=== PATIENT | female | born 1995 | race Two or more races ===

== ENCOUNTER 2021-04-19 13:26 | Emergency (ER) | payer OTHER ==
[~2021-04-19] VITALS: Ht 154.9 cm; Wt 67.6 kg
[2021-04-19 13:36] VITALS: BP 122/79
[2021-04-19 15:16] LABS: Hepatitis B Surface Antibody Negative (Negative)
== END 2021-04-19 15:21 | disposition home or self-care (01) ==
LOC: EEVIPCON 13:26 → ER 13:26
DX: S61.230A Puncture wound without foreign body of right index finger without damage to nail, initial encounter (principal); O26.891 Other specified pregnancy related conditions, first trimester; Z3A.12 12 weeks gestation of pregnancy; W46.1XXA Contact with contaminated hypodermic needle, initial encounter; Y93.89 Activity, other specified; Y92.89 Other specified places as the place of occurrence of the external cause; Y99.8 Other external cause status
CPT/HCPCS: 36415; 86703; 86706; 86803; 87340

== ENCOUNTER 2021-07-30 20:00 | Observation (INO) | payer MEDICAID ==
[~2021-07-30] VITALS: Ht 154.9 cm; Wt 70.8 kg
[2021-07-31] MEDS ORDERED: ONDA-144 PO (00:38)
[2021-07-31] MEDS ORDERED: NITR-87 PO (00:38)
== END 2021-07-30 21:21 | disposition home or self-care (01) ==
LOC: LDRP 20:00
PROVIDERS: ADMIT Obstetrics & Gynecology; ATTEND Obstetrics & Gynecology
DX: O26.892 Other specified pregnancy related conditions, second trimester (principal); R10.9 Unspecified abdominal pain; O21.2 Late vomiting of pregnancy; Z3A.27 27 weeks gestation of pregnancy
CPT/HCPCS: 59025; 81002; G0378

== ENCOUNTER 2021-07-30 22:04 | Emergency (ER) | payer MEDICAID ==
[~2021-07-30] VITALS: Ht 154.9 cm; Wt 70.8 kg
[2021-07-30] MEDS ORDERED: SODIUM CHLORIDE 0.9% 1,000 ML IV ONE (22:45)
[2021-07-30 23:25] LABS: Basophils # (auto) 0 10 ^3/uL (0-0.2); Basophils % (auto) 0.1 % (0.0-2.0); Eosinophils # (auto) 0.1 10 ^3/uL (0-0.8); Eosinophils % (auto) 0.3 % (0.0-7.0); Hematocrit 36.8 % (36.0-46.0); Hemoglobin 12.6 g/dL (12.2-16.2); Mean Corpuscular Hemoglobin 31.6 pg (28.0-32.0); Mean Corpuscular Hgb Conc. 34.2 g/dL (32.0-36.0); Mean Corpuscular Volume 92.4 fL (80.0-100.0); Monocytes # (auto) 0.9 10 ^3/uL (0-1.3); Monocytes % (auto) 5.6 % (0.0-12.0); Neutrophils # (auto) 11.8 10 ^3/uL (1.6-8.6); Nucleated Red Blood Cells % 0.1 %; Red Blood Cells 3.98 10^6/uL (4.0-5.20); Red Cell Distribution Width 12.6 % (11.8-14.3); White Blood Cell 15.8 10^3/uL (4.4-10.8)
[2021-07-30 23:35] LABS: INR 0.99 (0.9-1.15)
[2021-07-30 23:42] LABS: Albumin 3.3 g/dL (3.4-5.0); BUN/Creatinine Ratio 17.2; Calcium 9.4 mg/dL (8.5-10.1); Potassium 3.5 mmol/L (3.5-5.1)
[2021-07-30 23:45] LABS: Bilirubin, Total 0.2 mg/dL (0.2-1.0); Total Protein 7.6 g/dL (6.4-8.2)
[2021-07-31] MEDS ORDERED: ONDANSETRON ODT 4 MG TAB PO ONE (00:30)
[2021-07-31] MEDS ORDERED: ACETAMINOPHEN 325 MG TAB PO ONE (00:30)
[2021-07-31] MEDS ORDERED: NITROFURANTOIN 100 mg CAP PO ONE (00:30)
[2021-07-31] MEDS ORDERED: NITR-87 PO (00:38)
[2021-07-31] MEDS ORDERED: ONDA-144 PO (00:38)
[2021-07-31 01:05] VITALS: BP 122/68
== END 2021-07-31 01:11 | disposition home or self-care (01) ==
LOC: ER 22:04
DX: O23.42 Unspecified infection of urinary tract in pregnancy, second trimester (principal); N39.0 Urinary tract infection, site not specified; O99.891 Other specified diseases and conditions complicating pregnancy; N13.30 Unspecified hydronephrosis; Z3A.27 27 weeks gestation of pregnancy
CPT/HCPCS: 36415; 76705; 80053; 83605; 85025; 85610; 96360; 96361; 99284; J7030; Q0162